=== PATIENT | female | born 1995 | race Caucasian/White ===

== ENCOUNTER 2018-02-17 06:15 | Emergency (ER) | payer SELFPAY ==
[~2018-02-17] VITALS: Ht 165.1 cm; Wt 86.2 kg
[~2018-02-17 06:15] MED LIST: AMOXICILLIN500 MG PO; HYDROCODONE BIT1 T11 PO; MEDROL DOSEPAK4 MG PO; MOTRIN600 MG PO; PREDNICOT20 MG PO; ZITHROMAX Z PA250 MG PO
[2018-02-17] MEDS ORDERED: ZITHROMAX250 MG PO (07:21)
== END 2018-02-17 08:20 | disposition home or self-care (01) ==
LOC: ED 06:15
DX: J40 Bronchitis, not specified as acute or chronic (principal); Z88.8 Allergy status to other drugs, medicaments and biological substances